=== PATIENT | female | born 1990 | race Caucasian/White ===

== ENCOUNTER 2023-07-20 20:09 | Inpatient (IN) | payer OTHER, SELFPAY ==
[2023-07-20] MEDS: LACTATED RINGERS 1,000 ML 100 ML IV ×2 (20:30→21:35)
[2023-07-20 20:42] VITALS: BP 138/70
--- NOTE | 2023-07-20 20:53 | P.HPOB_ITS ---
OB HPI Date/Time Date of admission: 07/20/23 Date Patient Seen: 07/20/23 Time Patient Seen: 20:53 History of Present Condition Chief complaint: : 1 Para: 0 Estimated Date of Delivery: 07/07/23 Estimated Gestational Age (weeks): 41w6d Narrative: Vashti Burger is a 32 year old female transferring care to [facility] from [facility] ([facility] Initially, Olga Lidia Garcia had contacted Dr. Yesenia Skinner who requested that we accept transfer of care. Vashti is a at 41w6d by LMP and confirmed by early ultrasound; her STEFANY was 07/07/23. She started her care with a small clinic where she had NIPS (normal, XX per Vashti) and then [facility] for 2 visits. Vashti transferred care to [facility] at 16 weeks. She had an uncomplicated with normal labs and ultrasounds for viability and anatomy. Standard GDM testing was not completed, however Vashti did 4 days of fasting and 1 postprandials which were all WNL (04/27-04/30). On 07/17 she had a normal NST. She reports that she began labor 48 hours before arriving to [facility], and is ready now for an epidural and some rest. Her contractions have been mostly in her back, and many positions have been tried to help her labor progress throughout the day. . Per LM, cervical exam at 0600 today (07/20/23) was 5-6 cm and cervix has remained the same all day, however thinning but becoming edematous with pressure applied. However, per LM notes, cervix was 7 cm at 1546. Vashti has been unable to void all day and had had 2 straight catheters for a total of 700 mL urine output and a third per Vashti's report. IV placed at 1700 for IV hydration. Vashti has been well supported in her labor by her , Cristhian, her sister, Leti, and her outside repairer special, Sarah. Vashti desires epidural and wilson catheter. Her plan includes Cristhian helping to catch baby and cut cord, delayed cord clamping, skin to skin, no medications, to avoid pitocin and fundal massage if possible. Vashti has a history of bartholin's gland cyst with drain in first trimester, followed by BV, yeast and UTI, all treated appropriately. At 40 weeks, was attacked by a dog and bitten in back of lower L leg; did not seek treatment. History of Present care: good care, initiated at week # (8), number of visits (12) and pounds weight gain (estimated 25 lbs) Dating criteria: LMP confirmed by 1st trimester US Ultrasounds: normal 1st trimester US Medical complications: other (bartholins gland cyst in early ) Preadmission Labs Blood type: A (+) positive -: Antibody screen: negative, GBS status: negative, HIV: negative, HSV 1: unknown, HSV 2: unknown and RPR/VDLR: negative -: Chlamydia screen: not detected and Gonorrhea screen: not detected -: Rubella: immune and Varicella: immune HCT: 13.6 HCAB: negative Narrative: GDM screening declined in . Collected 4 fastings and 4 postprandial values Prior (ies) History: this is the first pregancy Evaluation Evaluation Baseline heart rate: 135 Variability: Moderate (11-25) monitor accelerations: Present Monitor Decelerations: Absent Contraction Frequency (minutes): 5 (3-7) Status: Category l Dilation (cm): 8 Effacement (%): 80 Dilation: >/=5 cm Effacement: >/=80% station: -2 Position of cervix: anterior Consistency: soft Miranda score: 11 PFSH Medical History (Updated 07/20/23 @ 21:10 by Luciana Meeks CNM, BRIA) Asthma Bacterial vaginitis Bartholin's gland cyst Chlamydia UTI (urinary tract infection) in in first trimester Vaginal candidiasis Family History Mother Hypertension Father Seizures Heart attack Grandfather Diabetes mellitus Grandmother Cancer Social History (Updated 07/20/23 @ 21:30 by Luciana Meeks CNM, BRIA) marital status: household members: spouse lives independently: No caregiver/support person: No occupational status: employed Smoking Status: Never smoker alcohol intake: former substance use type: does not use Meds Home Medications and Allergies Allergies Allergy/AdvReac Type Severity Reaction Status Date / Time No Known Drug Allergies Allergy Verified 07/20/23 20:46 Review of Systems Review of Systems Narrative: Negative except as mentioned in HPI. OB Exam Vital signs Blood Pressure: 119/84 Pulse Rate: 97 Respiratory Rate: 84 Temperature: 97 F HENMT Head: normal to inspection and normocephalic Eyes General: appearance normal, both eyes and all related structures Resp Effort & Inspection: normal respiratory effort Cardio Rate: regular rate Rhythm: regular rhythm Heart Sounds: normal, physiologic split S2 Extremities Lower extremity: Yes normal to inspection GI Inspection: normal to inspection (gravid) Palpation: Yes soft Auscultation: normal bowel sounds External Female Exam: Yes normal external appearance and Yes normal appearance of the urethra Presentation: vertex Estimated Weight (lbs): 8 Objective Labs 07/20/23 19:30 Assessment and Plan Assessment and Plan Assessment and Plan narrative: at 41w6d weeks by LMP GBS neg Rh positive Prolonged first stage of labor FHR Cat 1 Intact membranes History of asthma History of vaginitis in History of bartholin's gland cyst and drainage in Hemorrhoids Urinary retention Plan: Admit to L&D. Typical admission labs. Epidural and wilson catheter to be placed. SVE after comfortable; AROM and pitocin augmentation discussed and to be used PRN. Recommend AMTSL due to length of labor. Review why we recommend fundal massage but only do with consent. Review plan with Vashti and her team. Anticipate NSVB.
[2023-07-20 21:06] LABS: Add Manual Diff / Slide Review NO; Basophils Absolute Auto 100 /uL (0-100); Basophils Percent Auto 0.4 % (0-2); Eosinophils Absolute Auto 0 /uL (0-450); Hemoglobin 14.7 g/dL (12.0-16.0); Lymphocytes Absolute Auto 1700 /uL (1100-4500); Lymphocytes Percent Auto 8.6 % (25-40); Mean Corpuscular Hemoglobin 32.2 PG (26-34); Monocytes Absolute Auto 600 /uL (0-900); Neutrophils Absolute Auto 17000 /uL (1500-7000); Platelet Count 158 X10^3/uL (150-400); Red Blood Cell Count 4.56 X10^6/uL (4.0-5.2); Red Cell Distribution Width 12.9 % (11.6-14.8); White Blood Cell Count 19.4 X10^3/uL (4.5-11.0)
[2023-07-20] MEDS: FENT 2MCG/ML BUPIV 0.1% EPI 200 MCG/100 ML PLAST..BAG 12 MCG EPIDURAL (21:20)
--- NOTE | 2023-07-20 21:33 | PM.AN.REGBLK ---
Regional Block Pre-procedure Procedure: Continuous Lumbar Epidural for L&D PMH/ROS narrative: PSH/Anesthesia history narrative: Mild asthma Labs: Hct 42.0 % (36-46) 07/20/23 19:30 Plt Count 158 X10^3/uL (150-400) 07/20/23 19:30 Medications: Current Medications Generic Name Dose Route Start Last Admin Trade Name Freq PRN Reason Stop Dose Admin Calcium Carbonate 1,000 mg 07/20/23 20:43 Calcium Carbonate 500 Mg Tab PO Q4HR PRN Dyspepsia Carboprost Tromethamine 250 mcg 07/20/23 20:43 Carboprost 250 Mcg/Ml Ampul IM Q90M PRN Bleeding Oxytocin/Lactated Ringer's 30 unit in 500 mls @ 200 mls/hr 07/20/23 20:43 Oxytocin Premix IV CONT PRN Bleeding Protocol Tranexamic Acid 1,000 mg/ 100 mls @ 200 mls/hr 07/20/23 20:43 Sodium Chloride IV NOW PRN Bleeding Lactated Ringer's 1,000 mls @ 100 mls/hr 07/20/23 20:45 Lactated Ringers IV CONT BECKY Lidocaine HCl 20 ml 07/20/23 20:43 Lidocaine 1% 20 Ml INJ INTRA-OP PRN Post Delivery Methylergonovine Maleate 0.2 mg 07/20/23 20:43 Methylergonovine 0.2 Mg Tablet PO Q6HR PRN Heavy Bleeding Methylergonovine Maleate 0.2 mg 07/20/23 20:43 Methylergonovine 0.2 Mg/Ml Vial IM NOW PRN Bleeding Misoprostol 800 mcg 07/20/23 20:43 Misoprostol 200 Mcg Tablet OH NOW PRN Bleeding Misoprostol 400 mcg 07/20/23 20:43 Misoprostol 200 Mcg Tablet SL NOW PRN Bleeding Naloxone HCl 0.2 mg 07/20/23 20:43 Naloxone 0.4 Mg/Ml Vial IV Q2MIN PRN Opiate Reversal Ondansetron HCl 8 mg 07/20/23 20:43 Ondansetron 4 Mg/2 Ml Inj IV Q4HR PRN Nausea And Vomiting Oxytocin 10 unit 07/20/23 20:43 Oxytocin 10 Unit/Ml Vial IM NOW PRN Bleeding Allergies: Allergies Allergy/AdvReac Type Severity Reaction Status Date / Time No Known Drug Allergies Allergy Verified 07/20/23 20:46 Procedure Insertion date: 07/20/23 Insertion time: 21:20 Prep/Local: betadine x3 and 1% lidocaine Interspace: L4-5 Patient position: sitting Needle: 18 gauge Brook Loss of resistance with: air ADRIANA at (cm): 7 Catheter placed at SKIN (cm): 12 Catheter in SPACE (cm): 5 Initial Medications TEST DOSE time: 21:25 BOLUS DOSE time: 21:27 BOLUS DOSE (mL): 10 BOLUS DOSE med: 0.25% bupivacaine Infusion Initial rate (mL/hr): 12 Post-procedure Anesthesia time START: 21:20
[2023-07-20 21:38] VITALS: BP 119/84; PULSE 97; RESP 84; TEMP 36.1
--- NOTE | 2023-07-21 02:52 | PM.OBPNLAB ---
Date/Time Date Patient Seen: 07/21/23 Time Patient Seen: 02:45 Pain Control Comments: Resting/sleeping comfortably on L side, epidural working well for pain control, wondering if it could be turned down for second stage because legs feel totally numb. VS: BP - 108/61 P - 58 SpO2 - 95% T - 36.4C Pelvic Exam Dilation (cm): 9 Effacement (%): 95 station: -2 Amniotic membrane status: Ruptured (clear fluid) Contractions Contractions on admission: regular Monitor mode: External Contraction frequency (min): 5 Contraction duration (min): 2 Contraction pattern: Regular Contraction intensity: Strong/Firm Status status: Category l Heart Rate Baseline: 125 Monitor Accelerations: Present Monitor Decelerations: Absent Monitor Variability: Moderate Assessment and Plan Assessment: active labor Plan: continuous present management Comments: A: Active labor GBS negative Rh positive SROM, clear fluid Prolonged labor, first stage FHR Cat 1 P: Encourage frequent position changes Recheck in 3hrs sooner PRN Anticipate NSVB
[2023-07-21] MEDS: FENT 2MCG/ML BUPIV 0.1% EPI 200 MCG/100 ML PLAST..BAG 12 MCG EPIDURAL ×2 (03:51→10:21)
[2023-07-21] MEDS: LACTATED RINGERS 1,000 ML 100 ML IV (04:33)
--- NOTE | 2023-07-21 05:42 | PM.OBPNLAB ---
Date/Time Date Patient Seen: 07/21/23 Time Patient Seen: 05:42 Pain Control Pain control: epidural Comments: BP: 123/67 Pulse: 64 bpm Temp: 36.4 C Pelvic Exam Dilation (cm): 10 Effacement (%): 100 station: 0 Amniotic membrane status: Ruptured (clear fluid) Contractions Monitor mode: External Contraction frequency (min): 5 Contraction duration (min): 90 Contraction pattern: Regular Contraction intensity: Strong/Firm Status status: Category ll Heart Rate Baseline: 130 Monitor Accelerations: Present Monitor Decelerations: Late Monitor Variability: Moderate Assessment and Plan Comments: Assessment: at 42w0d 2nd stage labor GBS neg Rh pos FHR Cat 2 Recommend considering pitocin to augment labor during 2nd stage if FHR allows Labor down x 1 hour Anticipate NSVB.
--- NOTE | 2023-07-21 08:46 | PM.OBPNLAB ---
Date/Time Date Patient Seen: 07/21/23 Time Patient Seen: 08:47 Pain Control Comments: Vashti is pushing with good effort, changing positions frequently. Pushing initiated at 0636. descent from 0 station to +1/+2. Switching between L and R lateral and closed knee pushing positions. Requested epidural be turned down; she was happy with increased sensation in legs and pelvis. In last hour has gotten more painful with contractions, utilizing the DIRECTOR OF FINANCIAL PLANNING button for increased coverage. She is satisfied with the epidural dose at this time. , sister and sock knitting machine operator remain at bedside and supportive. CNM, RN and SNM at bedside supporting and coaching patient form 06 to 08. BP: 107/56 HR:77 Sp02:99 Temp:37.5C Pelvic Exam Dilation (cm): 10 Effacement (%): 100 station: +1 Amniotic membrane status: Ruptured (clear fluid) Contractions Monitor mode: External Contraction frequency (min): 5 (2-5) Contraction duration (min): 1 Contraction pattern: Regular Contraction intensity: Strong/Firm Status status: Category ll Heart Rate Baseline: 145 Monitor Accelerations: Absent Monitor Decelerations: Early and Late Monitor Variability: Moderate Assessment and Plan Assessment: active labor Plan: continuous present management Comments: A: Second stage of labor Pushing x2 hrs GBS neg Rh Pos Epidural working effectively at lower dose FHR Cat 2 P: Continue frequent position changes Provide emotional and physical support Anticipate NSVB Reassess PRN, plan to be at bedside
[2023-07-21] MEDS: OXYTOCIN PREMIX 30 UNIT/500 ML PLAST..BAG IV (09:18)
--- NOTE | 2023-07-21 10:43 | PM.AN.REGBLK ---
Regional Block Pre-procedure Labs: Hct 42.0 % (36-46) 07/20/23 19:30 Plt Count 158 X10^3/uL (150-400) 07/20/23 19:30 Medications: Current Medications Generic Name Dose Route Start Last Admin Trade Name Freq PRN Reason Stop Dose Admin Calcium Carbonate 1,000 mg 07/20/23 20:43 Calcium Carbonate 500 Mg Tab PO Q4HR PRN Dyspepsia Carboprost Tromethamine 250 mcg 07/20/23 20:43 Carboprost 250 Mcg/Ml Ampul IM Q90M PRN Bleeding Diphenhydramine HCl 25 mg 07/20/23 21:33 Diphenhydramine 50 Mg/Ml Vial IV Q10M PRN Pruritis Oxytocin/Lactated Ringer's 30 unit in 500 mls @ 200 mls/hr 07/20/23 20:43 Oxytocin Premix IV CONT PRN Bleeding Protocol Tranexamic Acid 1,000 mg/ 100 mls @ 200 mls/hr 07/20/23 20:43 Sodium Chloride IV NOW PRN Bleeding Lactated Ringer's 1,000 mls @ 100 mls/hr 07/20/23 20:45 07/21/23 04:33 Lactated Ringers IV 100 mls/hr CONT BECKY Administration FENT 2MCG/ML BUPIV 0.1% EPI 200 mcg in 100 mls @ 12 mls/hr 07/20/23 21:45 07/21/23 10:21 Fentanyl/Bupiv/Ns 2mcg/Ml - 0.1% EPIDURAL 12 mls/hr CONT BECKY Administration Oxytocin/Lactated Ringer's 30 unit in 500 mls @ 1 mls/hr 07/21/23 05:45 07/21/23 09:18 Oxytocin Premix IV 2 milliunit/min TITRATE BECKY 2 mls/hr Administration Protocol 1 MILLIUNIT/MIN Lidocaine HCl 20 ml 07/20/23 20:43 Lidocaine 1% 20 Ml INJ INTRA-OP PRN Post Delivery Methylergonovine Maleate 0.2 mg 07/20/23 20:43 Methylergonovine 0.2 Mg Tablet PO Q6HR PRN Heavy Bleeding Methylergonovine Maleate 0.2 mg 07/20/23 20:43 Methylergonovine 0.2 Mg/Ml Vial IM NOW PRN Bleeding Misoprostol 800 mcg 07/20/23 20:43 Misoprostol 200 Mcg Tablet ID NOW PRN Bleeding Misoprostol 400 mcg 07/20/23 20:43 Misoprostol 200 Mcg Tablet SL NOW PRN Bleeding Nalbuphine HCl 2.5 mg 07/20/23 21:33 Nalbuphine 20 Mg/Ml Ampul IV Q10M PRN Pruritis Naloxone HCl 0.2 mg 07/20/23 20:43 Naloxone 0.4 Mg/Ml Vial IV Q2MIN PRN Opiate Reversal Ondansetron HCl 8 mg 07/20/23 20:43 Ondansetron 4 Mg/2 Ml Inj IV Q4HR PRN Nausea And Vomiting Oxytocin 10 unit 07/20/23 20:43 Oxytocin 10 Unit/Ml Vial IM NOW PRN Bleeding Allergies: Allergies Allergy/AdvReac Type Severity Reaction Status Date / Time No Known Drug Allergies Allergy Verified 07/20/23 20:46 Post-procedure Anesthesia time END: 10:29 (07/21) Post-procedure Anesthesia Assessment: Yes CV function: HR/BP stable, Yes Resp function: RR/sat/airway adequate, Yes Post-op hydration adequate, Yes Pain control adequate, Yes Nausea & vomiting absent, Yes Temperature > 36 C, Yes Mental status appropriate and Yes Anesthesia complications
--- NOTE | 2023-07-21 11:16 | PM.OBPRVD ---
Labor & Delivery Delivery date: 07/21/23 Intrapartal Events: Prolonged Active Phase, Prolonged 2nd Stage > 2.5 hours and Gestational Term Greater Than 42 Weeks Delivery augmentation: pitocin Delivery monitor: external FHT and external uterine Route of delivery: L&D Laceration Description: Periurethral - 1st Degree (no indication for repair ) and Vaginal - 1st Degree (no indication for repair ) Quantitative Blood Loss: 330 Anesthesia Type: Epidural Narrative: Vashti was complete at 0536 and started pushing at 0636. She pushed for a long 2nd stage, a total of 3 hrs 52 min of active pushing. Second stage augmented with Pitocin initiated at 0918. CNM consulted on-call OB Dr. Carter after 3 hours of pushing, he agreed with plan to continue pushing. FHR was Cat 2 throughout 2nd stage, NSVB of baby at 1029, shoulders delivered easily. FOB assisted with delivery of . Baby was placed on maternal abdomen when Vashti reached to receive her. Apgars 9/9. They remained skin to skin while placenta was delivered with umbilical cord attached to , per patient request. Pitocin given IV per protocol at 300 millu/hr. Placenta delivered spontaneously with maternal efforts and appeared to be intact. Cord clamped and cut by FOB after delivery of placenta, cord white and no longer pulsing. Cord blood collected per protocol. Perineum inspected, shallow tear at the vaginal introitus noted along with shallow periurethral lacerations bilaterally, all hemostatic and well approximated. Blood loss measured and estimated loss is 330 mL. Mom and baby left stable and is being initiated. Vashti and Cristhian are thrilled to meet their baby girl, Lainey. MATILDE Roberts, CNM, IBCLC [place] [facility] 1: Infant gender: Female Presentation: vertex Position: Right Occiput Anterior Placenta delivery description: Spontaneous Cord Vessel Description: 3 Vessels score (1 min): 9 score (5 min): 9 weight: 2975 kg Plan for aftercare: Routine care
[2023-07-21] MEDS: IBUPROFEN 600 MG TABLET PO (23:41)
--- NOTE | 2023-07-22 08:00 | PM.OBDS.1 ---
Discharge Providers Provider Date of admission: 07/20/23 20:09 Discharge Date: 07/22/23 Consults: 07/22/23 11:08 Consult to Water Use Inspector Routine Comment: Discharge provider: Luciana Meeks CNM, ARNP Summary Hospital Course Date Patient Seen: 07/22/23 Time Patient Seen: 08:01 Diagnoses: Z39.1 and Hospital Course: Transfer from center to for pain relief. Epidural and spontaneous labor resulted in NSVB after almost 4 hours of pushing. Normal course. Breast feeding. Peripartum Data Infant Delivery Method: Natural Vaginal Laceration Description: Periurethral - 1st Degree and Vaginal - 1st Degree Episiotomy description: None Procedures: Vaginal delivery complications: none 1: Gender: Female Discharge Diagnosis (1) Breast feeding status of mother: Status: Acute (2) (normal spontaneous vaginal delivery): Start Date: 07/21/23 Start Time: 10:28 Status: Acute Time Spent with Patient Time attestation: Total time spent providing and/or coordinating discharge services: Objective Labs 07/20/23 19:30 Exam Vital Signs (past 8 hours): 116/68 70 bpm 14/min 98.2 F Other: Fundus firm at U, midline. Lochia scant Perineum intact with minimal edema Discharge Plan Discharge Plan Patient Disposition: Home Discharge orders & Medications Prescriptions: No Action No Known Home Medications Follow up/Referrals: Luciana Meeks CNM, ARNP [Advanced Maintenance Shop Manager] - 6 Weeks (PRN if needs contraception or support) Diet/Activity/Treatments Diet: Diet as Tolerated and Regular Skin/Wound/Dressing Care Report to your healthcare provider any signs of infection, such as:: chills, fever, unusual drainage and unusual redness Visit Report/Discharge Packet Stand Alone Forms: Patient Portal/API
[2023-07-22 12:57] VITALS: BP 114/71; PULSE 63; RESP 14; TEMP 36.5
== END 2023-07-22 15:15 | disposition home or self-care (01) | DRG 807 ==
PROVIDERS: Admitting Provider Advanced Practice Midwife; Referring Provider Advanced Practice Midwife; Visit Provider Advanced Practice Midwife
DX: O42.12 Full-term premature rupture of membranes, onset of labor more than 24 hours following rupture (principal); Z37.0 Single live birth; O48.0 Post-term pregnancy; O63.0 Prolonged first stage (of labor); Z3A.41 41 weeks gestation of pregnancy; O76 Abnormality in fetal heart rate and rhythm complicating labor and delivery; O99.892 Other specified diseases and conditions complicating childbirth; R33.9 Retention of urine, unspecified; Z67.10 Type A blood, Rh positive
CPT/HCPCS: 59050; 85025; 86850; 86900; 86901; G0379; J2590